=== PATIENT | male | born 2000 | race Caucasian/White ===

== ENCOUNTER 2020-05-01 22:03 | Emergency (ER) | payer OTHER, SELFPAY ==
--- NOTE | ~2020-05-01 | CT_ITS ---
EXAMINATION: CT abdomen pelvis w con DATE: 05/01/2020 23:26 INDICATION: Right lower quadrant and flank pain TECHNIQUE: Computed tomography (CT) of the abdomen and pelvis was performed with 100 cc Omnipaque 350 intravenous contrast. The dose-length product was 242.17 mGy-cm. Automated exposure control and iter ative reconstruction technique were employed. COMPARISON: None. FINDINGS: Lung bases are unremarkable. Heart size normal. No significant pleural or pericardial effus ion. The liver, spleen, pancreas, adrenal glands and kidneys are unremarkable. No hydronephrosis. Bladder is unremarkable. Normal appendix. Nonobstructive bowel gas pattern. No abnormal pelvic masses or flui d collections. No free air or free fluid. No acute osseous abnormality. No significant vascular abnor mality. No lymphadenopathy. IMPRESSION: 1. No acute abdominal abnormality. Reviewed, dictated and finalized at location A.
[2020-05-01 22:06] VITALS: BP 116/60; PULSE 91; RESP 15; TEMP 36.8; O2SAT 98
[2020-05-01 22:47] VITALS: BP 144/72; PULSE 84; O2SAT 98
[2020-05-01] MEDS: KETOROLAC 30 MG/ML VIAL (*BKC) IV PUSH (22:54)
[2020-05-01 22:55] LABS: Basophils Percent Auto 0.5 % (0.2-1.2); Eosinophils Absolute Auto 0.2 K/mm3 (0-0.3); Eosinophils Percent Auto 1.8 % (0-4.4); Hematocrit 43.5 % (42.0-52.0); Hemoglobin 14.4 g/dL (14.0-18.0); Immature Granulocyte Absolute 0.08 K/mm3 (0.00-0.031); Immature Granulocyte Percent A 0.9 % (0-0.5); Lymphocytes Absolute Auto 1.89 K/mm3 (0.9-3.2); Lymphocytes Percent Auto 22.1 % (18.3-44.2); Mean Corpuscular HGB Conc 33.1 g/dl (32-36); Mean Corpuscular Hemoglobin 29.3 pg (26-34); Mean Corpuscular Volume 88.6 fl (80-100); Mean Platelet Volume 10.1 fl (7.4-10.4); Monocytes Absolute Auto 0.7 K/mm3 (0.1-0.6); Monocytes Percent Auto 8.4 % (2.6-8.5); Neutrophils Absolute Auto 5.7 K/mm3 (1.3-6.7); Neutrophils Percent Auto 66.3 % (45.5-73.1); Platelet Count Result 333 k/mm3 (150-375); Red Blood Count 4.91 M/mm3 (4.6-6.20); Red Cell Distribution Width 12.6 % (11.5-14.5); White Blood Count 8.6 K/mm3 (4.5-10.0)
[2020-05-01 22:59] LABS: Add Urine Microscopic? YES; Appearance Urine Clear (Clear); Bacteria Urine Trace /hpf; Bilirubin Urine Negative (Negative); Blood Urine 1+ (Negative); Color Urine Straw (Yellow); Glucose Urine UA Negative (Negative); Ketones Urine Negative (Negative); Leukocyte Esterase Ur Negative LEU/UL (Negative); Mucus Urine Rare /lpf; Nitrate Urine Negative (Negative); Protein Urine Negative (Negative); RBC Urine 0-2 /hpf (0-2); Urobilinogen Urine Negative mg/dL (<2.0); WBC Urine 0-3 /hpf
[2020-05-01 23:08] LABS: Alanine Aminotransferase 42 U/L (4-50); Albumin Level 4.2 g/dL (3.7-5.6); Alkaline Phosphatase 61 U/L (58-237); Aspartate Amino Transferase 43 U/L (17-59); Bilirubin,Total 0.4 mg/dL (0.2-1.3); Blood Urea Nitrogen 6 mg/dL (8-21); Calcium 9.1 mg/dL (8.9-10.7); Carbon Dioxide 28 mmol/L (22-30); Chloride 100 mmol/L (98-107); Estimated Glomerular Filt Rate > 60; Glucose 108 mg/dL (75-110); Lipase 39 U/L (23-300); Potassium 4.2 mmol/L (3.4-5.0); Sodium 136 mmol/L (134-143)
--- NOTE | 2020-05-02 | ED.ABDPAIN ---
HPI - Abdominal Pain General Chief Complaint: Abdominal Pain Stated Complaint: Right flank pain Time Seen by Provider: 05/01/20 22:19 History of Present Illness HPI narrative: Patient is a 19-year-old male who presents ER with right-sided flank pain radiating around into his abdomen. He was seen 4 days at [facility] until he had a white blood cell count of 18,000 and that he may have strep throat so that he was prescribed an antibiotic. Symptoms persisted and he returned 2 days ago and received CT scan that he reports was read as normal. He also reports his blood work was normal. He denies any urinary frequency or urgency. He has not been taking pain medication. He is concerned as to the persistence of the pain and the fact that is radiating into his abdomen. Related Data Allergies Allergy/AdvReac Type Severity Reaction Status Date / Time No Known Allergies Allergy Verified 05/02/20 00:06 Review of Systems Review of Systems: All systems reviewed & are unremarkable except as noted in HPI and below Constitutional: Constitutional: Denies chills, Denies fever(s) and Denies weakness ENT: Denies nasal congestion and Denies sore throat Cardiovascular: Cardiovascular: Denies chest pain, Denies rapid heart rate and Denies radiating jaw, neck or arm pain Respiratory: Respiratory: Denies cough and Denies dyspnea Gastrointestinal: Gastrointestinal: Reports abdominal pain, Denies nausea and Denies vomiting Genitourinary: Genitourinary: Denies hematuria, Denies dysuria and Denies urinary frequency Comments: Positive flank pain PMFSH Past Medical History Medical History (Updated 05/02/20 @ 00:06 by Jeff Mckeon MD) Healthy adult male Surgical History Surgical History (Updated 05/02/20 @ 00:01 by Jeff Mckeon MD) No pertinent past surgical history Social History Social History (Updated 05/02/20 @ 00:02 by Jeff Mckeon MD) Substance use: never Exam Narrative: Exam Narrative: GENERAL: Well-appearing, well-nourished, and in no acute distress. HEAD: Normocephalic, atraumatic. ENT: Mucous membranes moist. CHEST: Clear to auscultation. No respiratory distress. HEART: Regular rate and rhythm. Normal peripheral pulses. ABDOMEN: Soft, mild tenderness palpation right lower quadrant near McBurney's point, nondistended, normal active bowel sounds. Right CVA tenderness with percussion. EXTREMITIES: Normal range of motion. No edema. SKIN: Warm, dry, no rash. NEURO: Alert and oriented x3. Course Course Emergency Course: Unremarkable evaluation. Will treat as muscle strain. No evidence of appendicitis or nephrolithiasis. No kidney infection. Pain resolved with toradol. Vital Signs Vital signs: Vital Signs Temperature 98.2 F 05/01/20 22:06 Pulse Rate 91 05/01/20 22:06 Respiratory Rate 15 05/01/20 22:06 Blood Pressure 116/60 05/01/20 22:06 Pulse Oximetry 98 05/01/20 22:06 Temperature 98.2 F 05/01/20 22:06 Pulse Rate 84 05/01/20 22:47 Respiratory Rate 15 05/01/20 22:06 Blood Pressure 144/72 H 05/01/20 22:47 Pulse Oximetry 98 05/01/20 22:47 MDM - Abdominal Pain Lab Data Result diagrams: 05/01/20 22:48 05/01/20 22:48 Labs: Lab Results 05/01/20 05/01/20 05/01/20 Range/Units 22:48 22:48 22:48 WBC 8.6 (4.5-10.0) K/mm3 RBC 4.91 (4.6-6.20) M/mm3 Hgb 14.4 (14.0-18.0) g/dL Hct 43.5 (42.0-52.0) % MCV 88.6 (80-100) fl MCH 29.3 (26-34) pg MCHC 33.1 (32-36) g/dl RDW 12.6 (11.5-14.5) % Plt Count 333 (150-375) k/mm3 MPV 10.1 (7.4-10.4) fl Immature Gran % (Auto) 0.9 H (0-0.5) % Neut % (Auto) 66.3 (45.5-73.1) % Lymph % (Auto) 22.1 (18.3-44.2) % [place] % (Auto) 8.4 (2.6-8.5) % Eos % (Auto) 1.8 (0-4.4) % Baso % (Auto) 0.5 (0.2-1.2) % Lymph # (Auto) 1.89 (0.9-3.2) K/mm3 [place] # (Auto) 0.7 H (0.1-0.6) K/mm3 Eos # (Auto) 0.2 (0-0.3) K/mm3 B
[2020-05-02 00:11] VITALS: BP 101/85; PULSE 73; RESP 18; O2SAT 98
[2020-05-02 00:16] VITALS: BP 101/85; PULSE 73; RESP 18; O2SAT 98
== END 2020-05-02 00:15 | disposition home or self-care (01) ==
PROVIDERS: Emergency Provider Emergency Medicine
DX: R10.9 Unspecified abdominal pain (principal)
CPT/HCPCS: 36415; 74177; 80053; 81001; 83690; 85025; 96374; 99284; J1885; Q9967